=== PATIENT | male | born 1950 | race Caucasian/White ===

== ENCOUNTER 2020-10-10 15:26 | Outpatient (CLI) | payer MEDICARE, SELFPAY ==
--- NOTE | 2020-10-10 15:00 | USCV_ITS ---
Mamadou Colbert Age: 70 Gender: M : 1950 Exam Date: 10/10/2020 15:48 Ordering Phys: Emiliano Cronin MD ([email or web address]) Technologist: Christiano Washburn Exam Location: [facility] – [place] Indication: CHEST PAIN BP: 125 / 75 HR: 105 Rhythm: Sinus Technical Quality: Adequate MEASUREMENTS (Male / Female) Normal Values 2D ECHO LV Diastolic Diameter PLAX 3.5 cm 4.2 - 5.9 / 3.9 - 5.3 cm LV Systolic Diameter PLAX 2.8 cm IVS Diastolic Thickness 1.2 cm 0.6 - 1.0 / 0.6 - 0.9 cm IVS Systolic Thickness 1.6 cm LVPW Diastolic Thickness 1.4 cm 0.6 - 1.0 / 0.6 - 0.9 cm LVPW Systolic Thickness 1.3 cm LVOT Diameter 1.9 cm LV Ejection Fraction 2D Teich 38.9 % LV Ejection Fraction MOD 2C 66.2 % LV Ejection Fraction 2C AL 66.7 % LA Diameter 3.8 cm LA Width 4.4 cm LA Height 5.1 cm RA Width 3.9 cm RA Height 4.7 cm M-MODE LV Diastolic Diameter MM 5.4 cm 4.2 - 5.9 / 3.9 - 5.3 cm LV Systolic Diameter MM 4.0 cm LV Ejection Fraction MM Teich 51.1 % IVS Diastolic Thickness MM 0.8 cm 0.6 - 1.0 / 0.6 - 0.9 cm IVS Systolic Thickness MM 1.0 cm LVPW Diastolic Thickness MM 1.0 cm 0.6 - 1.0 / 0.6 - 0.9 cm LVPW Systolic Thickness MM 1.3 cm RV Diastolic Diameter MM 1.3 cm Aortic Annulus Diameter 3.6 cm LA Ao Ratio MM 1.3 MV E Point Septal Separation 0.9 cm DOPPLER AV Peak Velocity 94.0 cm/s LVOT Peak Velocity 70.0 cm/s AV Area Cont Eq vti 2.1 cm squared AV Area Cont Eq pk 2.1 cm squared MV Area PHT 5.0 cm squared Mitral E to A Ratio 1.4 MV E' Velocity 53.0 cm/s Mitral E to MV E' Ratio 6.0 Mitral E to LV E' Lateral Ratio 6.0 Mitral E to LV E' Septal Ratio 6.0 TR Peak Velocity 257.0 cm/s TR Peak Gradient 26.4 mmHg TV Peak E Velocity 115.0 cm/s Right Atrial Pressure 3.0 mmHg Pulmonary Artery Systolic Pressu 29.4 mmHg PV Peak Velocity 77.0 cm/s FINDINGS Left Ventricle Normal left ventricular size and systolic function, EF 66 %. Mild left ventricular hypertrophy. No regional wall motion abnormalities. Right Ventricle The right ventricle is normal in size and function. Right Atrium Mildly increased right atrial size. Left Atrium Mildly increased left atrial size. Mitral Valve Thickened mitral valve. Mild-moderate mitral valve regurgitation. Aortic Valve Minimally thickened Tricuspid Valve [id number] tricuspid valve regurgitation. Pulmonic Valve No gross abnormalities noted Pericardium Normal pericardium without effusion. Aorta Normal ascending aorta dimension. CONCLUSIONS Normal left ventricular size and systolic function, EF 66 %. Mild left ventricular hypertrophy. No regional wall motion abnormalities. Mild biatrial enlargement Minimally thickened aortic and mitral valves. Mild to moderate mitral and tricuspid regurgitation Estimated pulmonary artery peak systolic pressure of 29 mmHg There is no pericardial effusion. There are no intracardiac masses. Compared to the previous study from 09/22/2018, there is significant improvement of the LV ejection fraction from 44% to 60%. Dr Emiliano Cronin MD [facility] (Electronically Signed) Final Date: 10 October 2020 16:33 S
== END 2020-10-10 15:27 | disposition home or self-care (01) ==
LOC: US 15:34
PROVIDERS: PCP Family Medicine; Visit Provider Internal Medicine Cardiovascular Disease
DX: R07.89 Other chest pain (principal); I08.3 Combined rheumatic disorders of mitral, aortic and tricuspid valves
CPT/HCPCS: 93306

== ENCOUNTER 2020-12-05 10:07 | Outpatient (CLI) | payer MEDICARE, SELFPAY ==
--- NOTE | 2020-12-05 10:16 | US_ITS ---
WS: [id number] TESTICULAR ULTRASOUND HISTORY: LT SCROTAL MASS/HYDROCELE COMPARISON: None available. TECHNIQUE: Real-time and color Doppler imaging or utilized to perform a testicular ultrasound. Right testicle: 3.4 cm x 3.5 cm x 2.9 cm. Normal sized testicle is displaced superiorly and laterally by the large hydrocele. Normal color Doppler is present throughout. Systolic and diastolic velocities are both present. Large minimally complex hydrocele. Right epididymis: Epididymis is poorly visualized due to distortion by the hydrocele. Left testicle: 3.7 cm x 4.0 cm x 2.5 cm. Normal sized testicle being displaced posteriorly in the LEFT scrotal sac by the hydrocele. Normal color Doppler is present throughout. Systolic and diastolic velocities are both present. Small hydrocele. There are septations adjacent to the testicle which may be adhesions with a median r aphae. Left epididymis: Poorly visualized. There is a very large complex hydrocele. Due to the displacement of the RIGHT testicle favor this is probably in the RIGHT scrotum. US/US scrotum [id number] IMPRESSION: 1. Technically difficult ultrasound evaluation due to the large hydrocele. Min imally complex hydrocele. Due to its large size difficult to determine if this is within the RIGHT scrotum or LEFT scrotum. 2. No testicular mass.
== END 2020-12-05 10:08 | disposition home or self-care (01) ==
LOC: RAD 10:12
PROVIDERS: PCP Family Medicine; Visit Provider Family Medicine
DX: N50.89 Other specified disorders of the male genital organs (principal); N43.3 Hydrocele, unspecified
CPT/HCPCS: 76870

== ENCOUNTER → 2020-12-20 07:48 | Outpatient (BNVA) | payer MEDICARE, SELFPAY | PROVIDERS: PCP Family Medicine; Referring Provider Family Medicine; Visit Provider Urology | DX: N43.3 Hydrocele, unspecified (principal); N43.42 Spermatocele of epididymis, multiple | CPT/HCPCS: 81003 ==

== ENCOUNTER → 2022-03-05 13:06 | Outpatient (BNVA) | payer MEDICARE, SELFPAY | PROVIDERS: PCP Family Medicine; Visit Provider Surgery | DX: R22.32 Localized swelling, mass and lump, left upper limb (principal) | CPT/HCPCS: 99203 ==

== ENCOUNTER → 2022-10-19 10:58 | Outpatient (BNVA) | payer MEDICARE, SELFPAY | PROVIDERS: PCP Family Medicine; Visit Provider Internal Medicine Cardiovascular Disease | DX: I25.10 Atherosclerotic heart disease of native coronary artery without angina pectoris (principal); Z94.0 Kidney transplant status; I48.0 Paroxysmal atrial fibrillation; I10 Essential (primary) hypertension; E78.2 Mixed hyperlipidemia; I63.19 Cerebral infarction due to embolism of other precerebral artery | CPT/HCPCS: 99214 ==

== ENCOUNTER 2022-12-04 09:07 | Outpatient (CLI) | payer MEDICARE, SELFPAY ==
--- NOTE | 2022-12-04 09:15 | US_ITS ---
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 ORDER DATE: 12/04/2022 9:17 AM TECHNIQUE: Grayscale and Doppler ultrasound examination of the abdomen. FINDINGS: Pancreas: Unremarkable as visualized Abdominal aorta and IVC: Aortic diameter 17 mm IVC unremarkable Liver: Liver measures 12.3 cm in length. Normal echotexture. Cyst in the right hepatic lobe subdiaphr agmatic region 10 mm in diameter. Gallbladder: No evidence of calculi. Gallbladder wall thickness measures 0.2 mm. Common bile duct 5.5 mm Bilateral [place] kidneys: Vague outlines with severe diffuse polycystic disease Right renal transplant measures 8.8 cm x 5.3 cm x 3.9. There is normal appearing duplex vascularity w ith no evidence of hydronephrosis or other focal abnormality. US/US abdomen complete* [id number] IMPRESSION: Unremarkable renal transplant Severe polycystic kidney disease in the [place] kidneys
== END 2022-12-04 09:08 | disposition home or self-care (01) ==
LOC: RAD 09:07
PROVIDERS: PCP Family Medicine; Visit Provider Internal Medicine
DX: Z01.89 Encounter for other specified special examinations (principal); Z94.0 Kidney transplant status; Q61.3 Polycystic kidney, unspecified
CPT/HCPCS: 76700

== ENCOUNTER → 2023-04-19 11:44 | Outpatient (BNVA) | payer MEDICARE, SELFPAY | PROVIDERS: PCP Family Medicine; Visit Provider Internal Medicine Cardiovascular Disease | DX: I25.10 Atherosclerotic heart disease of native coronary artery without angina pectoris (principal); E78.2 Mixed hyperlipidemia; I10 Essential (primary) hypertension; I48.0 Paroxysmal atrial fibrillation; I25.5 Ischemic cardiomyopathy; Z79.01 Long term (current) use of anticoagulants | CPT/HCPCS: 99214 ==

== ENCOUNTER → 2023-11-15 15:41 | Outpatient (BNVA) | payer MEDICARE, SELFPAY | PROVIDERS: PCP Family Medicine; Visit Provider Internal Medicine Cardiovascular Disease | DX: I25.10 Atherosclerotic heart disease of native coronary artery without angina pectoris (principal); E78.2 Mixed hyperlipidemia; I48.0 Paroxysmal atrial fibrillation; Z94.0 Kidney transplant status; I11.0 Hypertensive heart disease with heart failure; I50.32 Chronic diastolic (congestive) heart failure; Z79.01 Long term (current) use of anticoagulants | CPT/HCPCS: 99214 ==

== ENCOUNTER → 2024-12-19 16:02 | Outpatient (BNVA) | payer MEDICARE, SELFPAY | PROVIDERS: PCP Family Medicine; Visit Provider Internal Medicine Cardiovascular Disease | DX: R07.9 Chest pain, unspecified (principal) | CPT/HCPCS: 93005; 99214 ==

== ENCOUNTER 2025-01-25 10:58 | Outpatient (CLI) | payer MEDICARE, SELFPAY ==
--- NOTE | 2025-01-25 11:15 | USCV_ITS ---
Mamadou Colbert Age: 74 Gender: M : 1950 Exam Date: 01/25/2025 11:17 Ordering Phys: Emiliano Cronin MD ([email or web address]) Technologist: NURYS [place] [facility] [place]ication: AFIB/MR/TR BP: 139 / 93 HR: 91 Rhythm: Sinus Technical Quality: Adequate MEASUREMENTS (Male / Female) Normal Values 2D ECHO LV Diastolic Diameter PLAX 4.2 cm 4.2 - 5.9 / 3.9 - 5.3 cm IVS Diastolic Thickness 0.9 cm 0.6 - 1.0 / 0.6 - 0.9 cm IVS Systolic Thickness 1.4 cm LVPW Diastolic Thickness 1.0 cm 0.6 - 1.0 / 0.6 - 0.9 cm LVPW Systolic Thickness 1.1 cm LVOT Diameter 2.0 cm LV Ejection Fraction 2D Teich 61.3 % LV Ejection Fraction MOD 4C 56.1 % LV Ejection Fraction MOD 2C 63.0 % LV Ejection Fraction 2C AL 61.8 % LA Diameter 3.2 cm RA Systolic Volume 4C AL 41.0 ml RA Systolic Volume 4C MOD 40.8 ml LA Sys Volume AL 67.5 cm cubed LA Sys Volume Index AL 36.9 cm cubed/m squared Aorta at Sinotubular Diameter 2.9 cm IVC Diameter 1.9 cm M-MODE LA Ao Ratio MM 1.0 AV Cusp Separation MM 1.3 cm DOPPLER AV Peak Velocity 82.0 cm/s LVOT Peak Velocity 55.0 cm/s AV Area Cont Eq vti 2.5 cm squared AV Area Cont Eq pk 2.1 cm squared MV Peak Velocity 83.0 cm/s MV Area PHT 6.9 cm squared Mitral E to A Ratio 2.9 TR Peak Velocity 283.0 cm/s TR Peak Gradient 32.0 mmHg TV Peak E Velocity 68.0 cm/s PV Peak Velocity 80.0 cm/s FINDINGS Left Ventricle Diffuse hypokinesia of the left ventricle with ejection fraction of 45 to 50%, visual. Right Ventricle Normal right ventricular size and systolic function. Right Atrium Mildly increased right atrial size. Left Atrium Moderately increased left atrial size. Mitral Valve Mild to moderate mitral valve regurgitation. Aortic Valve Thickened aortic valve. Mild aortic valve calcification. Tricuspid Valve Trace tricuspid valve regurgitation. Pulmonic Valve No gross abnormalities noted Pericardium No pericardial effusion. Aorta Normal aortic annulus size. IVC Normal IVC dimension with <50% respiratory change of the inferior vena cava. CONCLUSIONS Diffuse hypokinesia of the left ventricle with ejection fraction of 45 to 50%, visual. Mildly increased right atrial size. Moderately increased left atrial size. Mild to moderate mitral valve regurgitation. Trace tricuspid valve regurgitation. Thickened aortic valve. Mild aortic valve calcification. There is no pericardial effusion. There are no intracardiac masses. Compared to the study from 10/10/2020, there is a drop in the LV ejection fraction. However compared to the study from 09/22/2018, the ejection fraction seems to be the same or slightly improved. Dr Emiliano Cronin MD [facility] (Electronically Signed) Final Date: 31 Jan 2025 09:00 S
== END 2025-01-25 10:59 | disposition home or self-care (01) ==
PROVIDERS: PCP Family Medicine; Visit Provider Internal Medicine Cardiovascular Disease
DX: R06.09 Other forms of dyspnea (principal); R93.1 Abnormal findings on diagnostic imaging of heart and coronary circulation; I51.7 Cardiomegaly; I34.0 Nonrheumatic mitral (valve) insufficiency; I35.8 Other nonrheumatic aortic valve disorders
CPT/HCPCS: 93306